=== PATIENT | female | born 1935 | race Caucasian/White ===

== ENCOUNTER → 2017-04-29 | Outpatient (CLI) | payer MEDICARE, MEDICAID ==
[~2017-04-29] MED LIST: E-Z-GAS II EFFERVESCENT PACKET (SODIUM BICARB./CITRIC ACID/SIMETHICONE) As Ordered ONE; E-Z-HD 98% w/w 340GM SUSP BTL As Ordered ONE; E-Z-PAQUE 96% w/w SUSP 176GM BTL As Ordered ONE
--- NOTE | 2017-04-29 16:37 | REP ---
ESOPHAGRAM: The procedure was performed under the direct supervision of Dr. Masters. The images were reviewed with Dr. Masetrs. A single view PA chest x-ray is submitted as a assembler surgical garment film. There is no change compared to a previous chest x-ray performed on 09/11/2015. Liquid barium and gas producing granules were given in the erect position as well as liquid barium in the prone oblique position in order to perform a double contrast esophagram examination. The oral and pharyngeal stages of deglutition are unremarkable. Note is made of cervical degenerative disc disease particularly at the C5-6 level. During esophageal transport there are tertiary waves demonstrated. At the GE junction there is a smooth stricture which measures 8 mm at its widest. There is a small hiatal hernia present. Gastroesophageal reflux is not demonstrated on this examination. IMPRESSION: 1. Esophageal dysmotility. 2. At the GE junction there is a smooth stricture which measures 8 mm at its widest. There is a small hiatal hernia. 1 minute and 1 second of fluoroscopy time was utilized for this procedure.
== END ==
LOC: M RAD 08:57
PROVIDERS: ATTEND Physician Assistant Medical
DX: K22.4 Dyskinesia of esophagus (principal); K44.9 Diaphragmatic hernia without obstruction or gangrene; R13.10 Dysphagia, unspecified; R12 Heartburn

== ENCOUNTER → 2017-05-20 | Outpatient (CLI) | payer MEDICARE ==
[~2017-05-20] VITALS: Ht 154.9 cm; Wt 58.5 kg
[~2017-05-20] MED LIST changes: -E-Z-GAS II EFFERVESCENT PACKET (SODIUM BICARB./CITRIC ACID/SIMETHICONE) As Ordered ONE; -E-Z-HD 98% w/w 340GM SUSP BTL As Ordered ONE; -E-Z-PAQUE 96% w/w SUSP 176GM BTL As Ordered ONE; +GLIM2TAB PO; +HYDR-3363 PO; +LEVO50TA5 PO; +LIDOCAINE 2% INJ 100 MG/5 ML SDV (FOR ANES.) As Ordered ONE; +LISI-542 PO; +NS 500 ML IV SCH; +PARO20TA4 PO; +PROPOFOL 200 MG/20 ML VIAL As Ordered ONE; +ROSU5TAB PO; +ePHEDrine SULFATE 25 MG/5 ML(5MG/ML) SYRINGE As Ordered ONE; +janumet PO
--- NOTE | 2017-05-20 08:43 | ROOR ---
Patient Name: Akosua Paez Procedure Date: 05/20/2017 7:57 AM Date of : 1935 Age: 81 Room: [facility] Gender: Female Note Status: Finalized Procedure: Upper GI endoscopy Indications: Dysphagia, Abnormal cine-esophagram Providers: Lázaro JUNG MD Referring MD: JUDY CASH Requesting Provider: Medicines: Monitored Anesthesia Care Complications: No immediate complications. Procedure: Pre-Anesthesia Assessment: - The heart rate, respiratory rate, oxygen saturations, blood pressure, adequacy of pulmonary ventilation, and response to care were monitored throughout the procedure. The Endoscope was introduced through the mouth, and advanced to the second part of duodenum. The upper GI endoscopy was accomplished without difficulty. The patient tolerated the procedure well. Findings: Abnormal motility was noted in the esophagus. There is spasticity and extra peristaltic waves of the esophageal body. The distal esophagus/lower esophageal sphincter is spastic, but gives up passage to the endoscope. Normal peristalsis not noted. One mild benign-appearing, intrinsic stenosis was found at the gastroesophageal junction. And was traversed. A TTS dilator was passed through the scope. Dilation with a 15-16.5-18 mm balloon dilator was performed to 18 mm. The dilation site was examined and showed no change. Biopsies were taken with a cold forceps for histology. Mild inflammation was found in the gastric antrum. Biopsies were taken with a cold forceps for Helicobacter pylori testing. The exam was otherwise without abnormality. Impression: - Abnormal esophageal motility/spasticity through entire esophagus and GE junction. - Slight benign-appearing esophageal stenosis (minimal, dubious significance). Dilated to 18 mm. Biopsied. - Minimal Gastritis. Biopsied. - The examination was otherwise normal. Recommendation: - Continue present medications. - Await pathology results. - Observe patient's clinical course. - Depending on todays results, consideration may be given to a trial on calcium channel alta or nitrates for esophageal dysmotility. - Depending on results, esophageal motility testing may be considered. Lázaro Jung MD Lázaro JUNG MD 05/20/2017 8:43:22 AM This report has been signed electronically. Number of Addenda: 0 Note Initiated On: 05/20/2017 7:57 AM Estimated Blood Loss: Estimated blood loss: none.
--- NOTE | 2017-05-20 08:49 | ROOR ---
Patient Name: Akosua Paez Procedure Date: 05/20/2017 7:57 AM Date of : 1935 Age: 81 Room: [facility] Gender: Female Note Status: Finalized Procedure: Colonoscopy Indications: Screening for colorectal malignant neoplasm Providers: Lázaro JUNG MD Referring MD: JUDY CASH Requesting Provider: Medicines: Monitored Anesthesia Care Complications: No immediate complications. Procedure: Pre-Anesthesia Assessment: - The heart rate, respiratory rate, oxygen saturations, blood pressure, adequacy of pulmonary ventilation, and response to care were monitored throughout the procedure. The Colonoscope was introduced through the anus and advanced to the terminal ileum, with identification of the appendiceal orifice and IC valve. The colonoscopy was performed without difficulty. The patient tolerated the procedure well. The quality of the bowel preparation was good. Findings: The perianal and digital rectal examinations were normal. Two sessile polyps were found in the sigmoid colon. The polyps were diminutive in size. These polyps were removed with a cold snare. Resection and retrieval were complete. A diminutive polyp was found in the rectum. The polyp was sessile. The polyp was removed with a cold snare. Resection and retrieval were complete. The exam was otherwise without abnormality on direct and retroflexion views. Impression: - Two diminutive polyps in the sigmoid colon, removed with a cold snare. Resected and retrieved. - One diminutive polyp in the distal rectum, removed with a cold snare. Resected and retrieved. - The colon examination was otherwise normal on direct and retroflexion views. Recommendation: - Telephone endoscopist for pathology results in 2 weeks. - If the pathology report reveals adenomatous tissue, then repeat the colonoscopy for surveillance in 3 years. Lázaro Jung MD Lázaro JUNG MD 05/20/2017 8:49:10 AM This report has been signed electronically. Number of Addenda: 0 Note Initiated On: 05/20/2017 7:57 AM Estimated Blood Loss: Estimated blood loss: none.
[2017-05-20 09:14] VITALS: BP 110/56
== END | disposition home or self-care (01) ==
LOC: M OPP 06:48
PROVIDERS: ATTEND Internal Medicine Gastroenterology
DX: Z12.11 Encounter for screening for malignant neoplasm of colon (principal); D12.5 Benign neoplasm of sigmoid colon; D12.8 Benign neoplasm of rectum; R13.10 Dysphagia, unspecified; R93.3 Abnormal findings on diagnostic imaging of other parts of digestive tract; R12 Heartburn; K29.70 Gastritis, unspecified, without bleeding; K22.4 Dyskinesia of esophagus; K22.2 Esophageal obstruction; I10 Essential (primary) hypertension; E78.5 Hyperlipidemia, unspecified; E11.9 Type 2 diabetes mellitus without complications; E03.9 Hypothyroidism, unspecified; M19.90 Unspecified osteoarthritis, unspecified site; M25.569 Pain in unspecified knee; M54.5 Low back pain; F32.9 Major depressive disorder, single episode, unspecified; F41.9 Anxiety disorder, unspecified; Z88.0 Allergy status to penicillin; Z88.8 Allergy status to other drugs, medicaments and biological substances; Z79.84 Long term (current) use of oral hypoglycemic drugs; Z79.899 Other long term (current) drug therapy

== ENCOUNTER → 2020-07-16 | Outpatient (CLI) | payer MEDICARE ==
[~2020-07-16] MED LIST changes: -GLIM2TAB PO; +GLIM2TAB4 PO; -LIDOCAINE 2% INJ 100 MG/5 ML SDV (FOR ANES.) As Ordered ONE; -NS 500 ML IV SCH; -PROPOFOL 200 MG/20 ML VIAL As Ordered ONE; -ROSU5TAB PO; +ROSU5TAB5 PO; -ePHEDrine SULFATE 25 MG/5 ML(5MG/ML) SYRINGE As Ordered ONE
--- NOTE | 2020-08-07 07:54 | REP ---
ELIZABETHIE SWALLOW The procedure was performed under the direct supervision of Dr. Masters. The procedure was performed with Cindy Perez from speech pathology present. 5 mL aliquots of thin, pudding, mixed fruit, soft, and solid consistency barium, as well as a barium pill were administered. There was no evidence of penetration or aspiration. A detailed report of this examination will be provided by speech pathology. 0.8 minutes of fluoroscopy time was utilized for this procedure. DARREL
== END ==
LOC: M ST 15:56
PROVIDERS: ATTEND Family Medicine
DX: R13.10 Dysphagia, unspecified (principal)

== ENCOUNTER → 2020-07-29 | Outpatient (REF) | payer MEDICARE ==
[2020-07-30 13:45] LABS: THYROID STIMULATING HORMONE 2.88 uIU/ML (0.358-3.740)
== END ==
LOC: M SFHCCLAY 11:19
PROVIDERS: ATTEND Family Medicine
DX: E03.8 Other specified hypothyroidism (principal)

== ENCOUNTER → 2020-09-25 | Outpatient (REF) | payer MEDICARE, OTHER | LOC: M SFHCCLAY 14:03 | PROVIDERS: ATTEND Family Medicine | DX: E11.9 Type 2 diabetes mellitus without complications (principal); Z23 Encounter for immunization | CPT/HCPCS: 83036; 90682; G0008; G0463 ==

== ENCOUNTER → 2020-11-04 | Outpatient (CLI) | payer MEDICARE, MEDICAID ==
--- NOTE | 2020-11-04 14:59 | REP ---
INDICATION: SLIPPING W/O FALLING/RIB PAIN/LEFT HIP AND LEG PAIN COMPARISON: None. TECHNIQUE: AP, lateral views of the left tibia/fibula FINDINGS: Age-related osteopenia and degenerative changes at the knee and ankle joint noted. No acute or healed injury identified. No subcutaneous emphysema or foreign body. IMPRESSION: Age-related osteopenia and degenerative changes. No acute fracture or dislocation. <Electronically signed by Jung Berger > 11/04/20 [id number]
--- NOTE | 2020-11-04 14:59 | REP ---
INDICATION: SLIPPING W/O FALLING/RIB PAIN/LEFT HIP AND LEG PAIN COMPARISON: None. TECHNIQUE: AP and frog-lateral views of the left hip FINDINGS: Generalized age-related changes include subtle increased sclerosis to the acetabulum with minimal joint space narrowing. No further overt osteoarthritic or significant degenerative changes are appreciated. No evidence for acute or healed injury. Surrounding soft tissues are normal. IMPRESSION: Generalized age-related changes. <Electronically signed by Jung Berger > 11/04/20 [id number]
--- NOTE | 2020-11-04 15:00 | REP ---
INDICATION: SLIPPING W/O FALLING/RIB PAIN LEFT SIDE COMPARISON: None. TECHNIQUE: Frontal view of the chest with multiple views of the left hemithorax. FINDINGS: Frontal view of the chest demonstrates no acute cardiopulmonary process, contusion, effusion, or pneumothorax. Osteopenia and degenerative changes to the thoracic spine and shoulders noted. Multiple views of the left hemithorax demonstrates no acute rib fracture/injury or pathology. IMPRESSION: No obvious acute left rib pathology or injury. <Electronically signed by Jung Berger > 11/04/20 [id number]
== END ==
LOC: M CLY 14:10
PROVIDERS: ATTEND Nurse Practitioner Family
DX: M16.12 Unilateral primary osteoarthritis, left hip (principal); M85.862 Other specified disorders of bone density and structure, left lower leg; M51.34 Other intervertebral disc degeneration, thoracic region; R07.81 Pleurodynia; W18.43XA Slipping, tripping and stumbling without falling due to stepping from one level to another, initial encounter; M25.552 Pain in left hip; M79.605 Pain in left leg
CPT/HCPCS: 71101; 73502; 73590; G0463

== ENCOUNTER → 2021-03-28 | Outpatient (REF) | payer MEDICARE, MEDICAID ==
[~2021-03-28] MED LIST changes: -LISI-542 PO; +LISI-898 PO
[2021-03-28 16:53] LABS: HEMOGLOBIN A1c 8.3 %
[2021-03-28 16:58] LABS: CALCIUM LEVEL 8.8 MG/DL (8.8-10.2); CHOLESTEROL RISK RATIO 4.96 (<5); GLOMERULAR FILTRATION RATE 56.4 (>32); POTASSIUM SERUM 4.5 MEQ/L (3.5-5.1)
[2021-03-28 17:05] LABS: MALB URINE SIEMENS 33.3 MG/L; MAU/CREAT RATIO 31.7 MCG/MG (0.0-30.0)
== END ==
LOC: M SFHCCLAY 11:40
PROVIDERS: ATTEND Family Medicine
DX: E11.9 Type 2 diabetes mellitus without complications (principal)

== ENCOUNTER → 2021-09-10 | Outpatient (REF) | payer MEDICARE, MEDICAID ==
[2021-09-11 12:20] LABS: CALCIUM LEVEL 9.2 MG/DL (8.8-10.2); CREATININE FOR GFR 1.09 MG/DL (0.55-1.30); POTASSIUM SERUM 4.9 MEQ/L (3.5-5.1)
[2021-09-11 13:04] LABS: HEMOGLOBIN A1c 9.6 %
== END ==
LOC: M SFHCCLAY 15:26
PROVIDERS: ATTEND Family Medicine
DX: E11.9 Type 2 diabetes mellitus without complications (principal)

== ENCOUNTER 2023-11-29 17:10 | Emergency (ER) | payer MEDICARE, MEDICAID ==
[~2023-11-29] VITALS: Ht 154.9 cm; Wt 51.8 kg
[~2023-11-29 17:10] MED LIST changes: -LISI-898 PO; +LISI5TAB11 PO
[2023-11-29 18:18] LABS: BASO # 0.1 10^3/uL (0.0-0.2); BASO % 0.6 % (0.0-1.0); EOS # 0.1 10^3/uL (0.0-0.5); HEMATOCRIT 37.4 % (36.0-47.0); HEMOGLOBIN 13.2 g/dl (12.0-15.5); LYMPH # 2.3 10^3/uL (1.5-5.0); LYMPH % 23.6 % (24.0-44.0); MEAN CORPUSCULAR HEMOGLOBIN 31.7 pg (27.0-33.0); MEAN CORPUSCULAR HGB CONC 35.3 g/dl (32.0-36.5); MEAN CORPUSCULAR VOLUME 89.9 fl (80.0-96.0); MONO # 0.8 10^3/uL (0.0-0.8); MONO % 7.8 % (2.0-8.0); NEUTROPHILS # 6.6 10^3/uL (1.5-8.5); NEUTROPHILS % 66.6 % (36.0-66.0); PLATELET COUNT, AUTOMATED 377 10^3/uL (150-450); RED BLOOD COUNT 4.16 10^6/uL (4.00-5.40); WHITE BLOOD COUNT 9.9 10^3/uL (4.0-10.0)
[2023-11-29 18:43] LABS: CALCIUM LEVEL 9.7 MG/DL (8.3-10.6); CREATININE FOR GFR 1.35 MG/DL (0.55-1.30); GLOMERULAR FILTRATION RATE 39.6 (>32); POTASSIUM SERUM 3.8 MMOL/L (3.5-5.1)
[2023-11-29 19:00] VITALS: TEMP 98
[2023-11-29 19:30] VITALS: BP 140/67; O2SAT 97
[2023-11-29] MEDS ORDERED: diazePAM 5MG TABLET PO ONE (19:35)
[2023-11-29] MEDS ORDERED: KETOROLAC 30 MG/ML 1ML VIAL IM ONE (19:35)
[2023-11-29] MEDS ORDERED: TRAM37.53 PO (19:39)
== END 2023-11-29 20:00 | disposition home or self-care (01) ==
LOC: M ED 17:10
DX: M54.41 Lumbago with sciatica, right side (principal); E11.9 Type 2 diabetes mellitus without complications; I10 Essential (primary) hypertension; Z87.891 Personal history of nicotine dependence; Z79.899 Other long term (current) drug therapy; Z88.0 Allergy status to penicillin; Z88.8 Allergy status to other drugs, medicaments and biological substances
CPT/HCPCS: 73502; 73552; 80048; 85025; 96372; 99284; J1885

== ENCOUNTER 2025-07-02 16:57 | Observation (INO) | payer MEDICARE, MEDICAID ==
[~2025-07-02] VITALS: Ht 160 cm; Wt 57.6 kg
[~2025-07-02 16:57] MED LIST changes: +ROSU5TAB49 PO; -ROSU5TAB5 PO; +TRAM1TAB42 PO
[2025-07-02] MEDS ORDERED: PARO20TA3 (17:31)
[2025-07-02] MEDS ORDERED: ELIQ2.5T PO (17:31)
[2025-07-02] MEDS ORDERED: ATOR40TA75 PO (17:31)
[2025-07-02] MEDS ORDERED: GLIM4TAB5 PO (17:31)
[2025-07-02] MEDS ORDERED: METF500T13 PO (17:31)
[2025-07-02 18:28] LABS: BASO # 0.1 10^3/uL (0.0-0.2); BASO % 0.6 % (0.0-1.0); EOS # 0.1 10^3/uL (0.0-0.5); EOS % 1.6 % (0.0-3.0); LYMPH # 1.7 10^3/uL (1.5-5.0); LYMPH % 18.4 % (24.0-44.0); MONO # 1.0 10^3/uL (0.0-0.8); MONO % 10.7 % (2.0-8.0); NEUTROPHILS # 6.2 10^3/uL (1.5-8.5); NEUTROPHILS % 68.4 % (36.0-66.0); PLATELET COUNT, AUTOMATED 291 10^3/uL (150-450)
[2025-07-02 19:04] LABS: CALCIUM LEVEL 8.9 MG/DL (8.3-10.6); CARBON DIOXIDE LEVEL 28.0 MMOL/L (20-31); CHLORIDE LEVEL 98.0 MMOL/L (98-107); CREATININE FOR GFR 0.99 MG/DL (0.55-1.30); GLOMERULAR FILTRATION RATE 55.2 (>32); POTASSIUM SERUM 5.3 MMOL/L (3.5-5.1); SODIUM LEVEL 134.0 MMOL/L (136-145)
[2025-07-02] MEDS: TETANUS/DIPHTH/ACEL. PERTUSSIS 0.5 ML SYR IM.IMMUN ONE (19:12)
[2025-07-02 19:46] LABS: INR 1.0
[2025-07-02] MEDS ORDERED: TRAZ-189 PO (19:52)
[2025-07-02] MEDS ORDERED: PARO40TA2 PO (19:52)
[2025-07-02] MEDS ORDERED: GABA-1171 PO ×2 (19:53)
[2025-07-02] MEDS ORDERED: HOME MED LIST COMPLETE! XX SCH (19:55)
[2025-07-02] MEDS ORDERED: med rec comment (19:55)
[2025-07-02] MEDS ORDERED: GLUCOSE 4 GM CHEW PO PRN (20:20)
[2025-07-02] MEDS ORDERED: DEXTROSE 50% 50 ML SYRINGE IV PRN (20:20)
[2025-07-02] MEDS ORDERED: GLUCAGON INJ 1 MG VIAL SC PRN (20:20)
[2025-07-02 20:58] LABS: ALT/SGPT 15.0 U/L (7.0-40); AST/SGOT 35.0 U/L (<34); MAGNESIUM LEVEL 1.3 MG/DL (1.8-2.4)
[2025-07-02] MEDS: INSULIN LISPRO (NovoLOG) PER UNIT SC SCH (21:34)
[2025-07-02] MEDS: PARoxetine 20MG TABLET PO SCH (21:37)
[2025-07-02] MEDS: GABAPENTIN 100 MG CAP PO SCH (21:37)
[2025-07-02] MEDS: APIXABAN 2.5 MG TAB PO SCH (21:37)
[2025-07-02] MEDS: traZODone 100 MG TAB PO SCH (21:37)
[2025-07-02] MEDS: METOPROLOL TART 12.5 MG PER 1/2 TAB PO ONE (23:53)
[2025-07-02] MEDS: METOPROLOL 5 MG/5 ML VIAL IV STA (23:55)
[2025-07-03] MEDS: MAG SULF 1GM/100ML (MAG RUN) 1 GM in IV 1 EA IV SCH (00:22)
[2025-07-03] MEDS: MAGNESIUM OXIDE 400 MG TAB PO ONE (00:22)
[2025-07-03] MEDS: OLANZapine ORAL DISINTEGRATING TAB 5MG PO PRN (00:22)
[2025-07-03 01:34] VITALS: BP 137/67; TEMP 97.1; O2SAT 98
[2025-07-03] MEDS: ACETAMINOPHEN 325 MG TAB PO ONE (02:22)
[2025-07-03 03:41] LABS: CPK CREATINE PHOSPHOKINASE 100.0 U/L (34-145)
[2025-07-03 04:00] VITALS: BP 103/54; TEMP 98.2; O2SAT 97
[2025-07-03 04:47] LABS: CK-MB VALUE MASS 1.9 NG/ML (<3.6); MB/CK RELATIVE INDEX 1.9 (< OR =4)
[2025-07-03 05:54] LABS: BASO # 0.0 10^3/uL (0.0-0.2); BASO % 0.5 % (0.0-1.0); EOS # 0.2 10^3/uL (0.0-0.5); EOS % 1.8 % (0.0-3.0); LYMPH # 1.9 10^3/uL (1.5-5.0); LYMPH % 21.9 % (24.0-44.0); MONO # 1.1 10^3/uL (0.0-0.8); MONO % 12.2 % (2.0-8.0); NEUTROPHILS # 5.5 10^3/uL (1.5-8.5); NEUTROPHILS % 63.1 % (36.0-66.0); PLATELET COUNT, AUTOMATED 244 10^3/uL (150-450)
[2025-07-03 06:25] LABS: ALT/SGPT 11.0 U/L (7.0-40); AST/SGOT 15.0 U/L (<34); CALCIUM LEVEL 8.8 MG/DL (8.3-10.6); CARBON DIOXIDE LEVEL 29.0 MMOL/L (20-31); CHLORIDE LEVEL 98.0 MMOL/L (98-107); CREATININE FOR GFR 1.1 MG/DL (0.55-1.30); GLOMERULAR FILTRATION RATE 48.6 (>32); MAGNESIUM LEVEL 2.2 MG/DL (1.8-2.4); POTASSIUM SERUM 4.4 MMOL/L (3.5-5.1); SODIUM LEVEL 134.0 MMOL/L (136-145)
[2025-07-03 08:28] VITALS: BP 135/63; TEMP 98.4; O2SAT 97
[2025-07-03] MEDS: GABAPENTIN 100 MG CAP PO SCH (09:08)
[2025-07-03] MEDS: ATORVASTATIN 20 MG TAB PO SCH (09:08)
[2025-07-03] MEDS: INSULIN LISPRO (NovoLOG) PER UNIT SC SCH (09:15)
[2025-07-03 11:50] VITALS: BP 113/53; TEMP 97.8; O2SAT 71
[2025-07-03] MEDS: METOPROLOL SUCC *XL* 12.5 MG PER 1/2 TAB PO SCH (15:10)
[2025-07-03] MEDS: metFORMIN 500 MG TAB PO SCH (17:40)
[2025-07-04] MEDS: ACETAMINOPHEN 325 MG TAB PO PRN (01:41)
[2025-07-04 07:57] VITALS: BP 115/55; TEMP 98; O2SAT 98
[2025-07-04 16:45] VITALS: BP 111/55; TEMP 97.2; O2SAT 95
[2025-07-04 20:00] VITALS: BP 138/84; TEMP 97.9; O2SAT 94
[2025-07-05 04:00] VITALS: TEMP 97.7; O2SAT 92
[2025-07-05 12:00] VITALS: BP 148/78; TEMP 97.7; O2SAT 96
[2025-07-06 04:05] VITALS: BP 128/63; TEMP 97.9; O2SAT 95
[2025-07-07 04:00] VITALS: BP 139/72; TEMP 97.9; O2SAT 96
[2025-07-08 04:00] VITALS: BP 116/58; TEMP 97.5; O2SAT 96
[2025-07-09 03:46] VITALS: BP 132/76; TEMP 97.9; O2SAT 97
[2025-07-10 03:45] VITALS: BP 133/65; TEMP 97.5; O2SAT 97
[2025-07-12 04:37] VITALS: BP 156/60; TEMP 97.5; O2SAT 94
[2025-07-12 20:31] VITALS: BP 148/73
[2025-07-13 06:50] VITALS: BP 144/72; TEMP 98.1; O2SAT 97
[2025-07-14 04:17] VITALS: BP 144/72; TEMP 97.9; O2SAT 95
[2025-07-15 03:41] VITALS: BP 142/63; TEMP 97.8; O2SAT 93
[2025-07-16 06:30] VITALS: BP 139/72; TEMP 97.7; O2SAT 95
[2025-07-16] MEDS ORDERED: METO1TAB32 PO (12:08)
[2025-07-17 03:07] VITALS: BP 129/52; TEMP 97.3; O2SAT 96
[2025-07-17 08:16] VITALS: BP 125/59
== END 2025-07-17 10:38 | disposition home health service (06) ==
LOC: M ED 16:57 → M PCU 23:36 → INTOOBSV 23:36 → M MSPAV 07-04 16:42
PROVIDERS: ADMIT Student in an Organized Health Care Education/Training Program; ATTEND General Practice
DX: I48.91 Unspecified atrial fibrillation (principal); S00.03XA Contusion of scalp, initial encounter; S00.81XA Abrasion of other part of head, initial encounter; V48.4XXA Person boarding or alighting a car injured in noncollision transport accident, initial encounter; Y92.014 Private driveway to single-family (private) house as the place of occurrence of the external cause; R51.9 Headache, unspecified; R26.2 Difficulty in walking, not elsewhere classified; Z91.81 History of falling; R93.1 Abnormal findings on diagnostic imaging of heart and coronary circulation; E11.9 Type 2 diabetes mellitus without complications; E78.5 Hyperlipidemia, unspecified; I10 Essential (primary) hypertension; F03.90 Unspecified dementia, unspecified severity, without behavioral disturbance, psychotic disturbance, mood disturbance, and anxiety; F41.9 Anxiety disorder, unspecified; F32.A Depression, unspecified; Z98.41 Cataract extraction status, right eye; Z98.42 Cataract extraction status, left eye; Z96.1 Presence of intraocular lens; Z98.890 Other specified postprocedural states; Z87.891 Personal history of nicotine dependence; R94.31 Abnormal electrocardiogram [ECG] [EKG]; I45.10 Unspecified right bundle-branch block; G31.1 Senile degeneration of brain, not elsewhere classified; Z88.8 Allergy status to other drugs, medicaments and biological substances; Z88.0 Allergy status to penicillin; Z79.899 Other long term (current) drug therapy; Z79.01 Long term (current) use of anticoagulants; Z79.84 Long term (current) use of oral hypoglycemic drugs; Z23 Encounter for immunization
CPT/HCPCS: 36415; 70450; 72125; 80048; 80053; 80076; 82140; 82550; 82553; 83735; 83880; 84484; 85025; 85610; 90471; 90715; 93306; 96365; 96376; 97116; 97161; 99285; G0378; J3475

== ENCOUNTER 2025-10-08 16:52 | Inpatient (IN) | payer MEDICARE, MEDICAID ==
[~2025-10-08] VITALS: Ht 154.9 cm; Wt 58.6 kg
[~2025-10-08 16:52] MED LIST changes: +ATOR40TA75 PO; +ELIQ2.5T PO; +GABA-1171 PO; +GLIM4TAB5 PO; +METF500T13 PO; +METO1TAB32 PO; +PARO20TA3; +PARO40TA2 PO; +TRAZ-189 PO; +med rec comment
[2025-10-08 17:32] LABS: BASO # 0.0 10^3/uL (0.0-0.2); BASO % 0.3 % (0.0-1.0); EOS # 0.0 10^3/uL (0.0-0.5); EOS % 0.0 % (0.0-3.0); LYMPH # 0.4 10^3/uL (1.5-5.0); LYMPH % 6.0 % (24.0-44.0); MONO # 0.5 10^3/uL (0.0-0.8); MONO % 7.4 % (2.0-8.0); NEUTROPHILS # 5.9 10^3/uL (1.5-8.5); NEUTROPHILS % 85.9 % (36.0-66.0); PLATELET COUNT, AUTOMATED 243 10^3/uL (150-450)
[2025-10-08 17:35] LABS: KETONE, URINE AUTO RFX TRACE mg/dL (NEGATIVE); LEUKOCYTE ESTERASE UR AUTO RFX NEGATIVE (NEGATIVE); NITRITE, URINE AUTO RFX NEGATIVE (NEGATIVE); RBC, URINE AUTO RFX 1 /HPF (0-3); SQUAM EPITHELIAL CELL UR AURFX 0 /HPF (0-6); WBC, URINE AUTO RFX 1 /HPF (0-3)
[2025-10-08 17:59] LABS: ALT/SGPT 18.0 U/L (7.0-40); AST/SGOT 26.0 U/L (<34); CALCIUM LEVEL 9.3 MG/DL (8.3-10.6); CARBON DIOXIDE LEVEL 24.0 MMOL/L (20-31); CHLORIDE LEVEL 94.0 MMOL/L (98-107); CREATININE FOR GFR 1.0 MG/DL (0.55-1.30); GLOMERULAR FILTRATION RATE 54.2 (>32); POTASSIUM SERUM 4.6 MMOL/L (3.5-5.1); SODIUM LEVEL 130.0 MMOL/L (136-145)
[2025-10-08] MEDS: NS (Normal Saline) 0.9% 1,000 ML IV ONE (18:14)
[2025-10-08 18:20] LABS: VENOUS BASE EXCESS -2.5 (-2.0-2.0); VENOUS HCO3 23.9 MMOL/L (23.0-27.0); VENOUS O2 SATURATION 75.2 % (60.0-80.0); VENOUS PARTIAL PRESSURE CO2 48.3 mmHg (38.0-50.0); VENOUS PARTIAL PRESSURE O2 41.7 mmHg (30.0-50.0); VENOUS PH 7.313 UNITS (7.330-7.430); VENOUS STANDARD HCO3 21.9 MMOL/L; VENOUS TOTAL CO2 25.4 MMOL/L (24.0-28.0)
[2025-10-08 18:30] LABS: ACETONE/KETONE 0.7 MMOL/L (0.02-0.27)
[2025-10-08] MEDS: HumuLIN R (REGULAR) INSULIN (NovoLIN R) **100 U/ML** PER UNIT IV ONE (18:39)
[2025-10-08] MEDS: OSELTAMIVIR PHOSPHATE 75 MG CAP PO ONE (18:43)
[2025-10-08] MEDS ORDERED: METO1TAB32 PO (19:18)
[2025-10-08] MEDS ORDERED: HOME MED LIST COMPLETE! XX SCH (19:20)
[2025-10-08] MEDS ORDERED: HYDR-3363 PO (19:20)
[2025-10-08] MEDS ORDERED: DEXTROSE 50% 50 ML SYRINGE IV PRN (19:45)
[2025-10-08] MEDS ORDERED: MOM 30 ML SUSPENSION UDC PO PRN (19:45)
[2025-10-08] MEDS ORDERED: ONDANSETRON 4MG/2ML VIAL IV PRN (19:45)
[2025-10-08] MEDS ORDERED: GLUCAGON INJ 1 MG VIAL SC PRN (19:45)
[2025-10-08] MEDS ORDERED: GLUCOSE 4 GM CHEW PO PRN (19:45)
[2025-10-08] MEDS: PARoxetine 20MG TABLET PO SCH (21:35)
[2025-10-08] MEDS: NS (Normal Saline) 0.9% 1,000 ML IV SCH (21:35)
[2025-10-08] MEDS: traZODone 100 MG TAB PO SCH (21:36)
[2025-10-08] MEDS: GABAPENTIN 100 MG CAP PO SCH (21:36)
[2025-10-08] MEDS: ACETAMINOPHEN 325 MG TAB PO PRN (21:36)
[2025-10-08] MEDS: METOPROLOL SUCC. 25 MG *XL* TAB PO SCH (21:36)
[2025-10-08] MEDS: APIXABAN 2.5 MG TAB PO SCH (21:36)
[2025-10-08] MEDS: METOPROLOL 5 MG/5 ML VIAL IV SCH (23:22)
[2025-10-09] MEDS: INSULIN LISPRO (NovoLOG) PER UNIT SC SCH (00:03)
[2025-10-09] MEDS: dilTIAZem 25 MG/5 ML VIAL IV STA (00:04)
[2025-10-09] MEDS: dilTIAZem 60 MG TAB PO SCH (01:13)
[2025-10-09] MEDS: AMIODARONE HCL 150 MG in IV 1 EA IV SCH (03:52)
[2025-10-09 04:15] LABS: PLATELET COUNT, AUTOMATED 214 10^3/uL (150-450)
[2025-10-09 04:46] LABS: ALT/SGPT 12.0 U/L (7.0-40); AST/SGOT 32.0 U/L (<34); CALCIUM LEVEL 7.9 MG/DL (8.3-10.6); CARBON DIOXIDE LEVEL 26.0 MMOL/L (20-31); CHLORIDE LEVEL 103.0 MMOL/L (98-107); CREATININE FOR GFR 1.01 MG/DL (0.55-1.30); GLOMERULAR FILTRATION RATE 53.5 (>32); MAGNESIUM LEVEL 1.3 MG/DL (1.8-2.4); POTASSIUM SERUM 4.1 MMOL/L (3.5-5.1); SODIUM LEVEL 139.0 MMOL/L (136-145)
[2025-10-09 04:47] LABS: CALCIUM LEVEL 7.7 MG/DL (8.3-10.6); CARBON DIOXIDE LEVEL 26.0 MMOL/L (20-31); CHLORIDE LEVEL 103.0 MMOL/L (98-107); CREATININE FOR GFR 1.0 MG/DL (0.55-1.30); GLOMERULAR FILTRATION RATE 54.2 (>32); MAGNESIUM LEVEL 1.3 MG/DL (1.8-2.4); POTASSIUM SERUM 5.3 MMOL/L (3.5-5.1); SODIUM LEVEL 138.0 MMOL/L (136-145)
[2025-10-09] MEDS: MAG SULF 1GM/100ML (MAG RUN) 1 GM in IV 1 EA IV SCH (06:16)
[2025-10-09] MEDS: ATORVASTATIN 20 MG TAB PO SCH (08:59)
[2025-10-09] MEDS: metFORMIN 500 MG TAB PO SCH (08:59)
[2025-10-09] MEDS: OSELTAMIVIR PHOSPHATE 30MG CAPSULE PO SCH (08:59)
[2025-10-09] MEDS: PANTOPRAZOLE 40MG TAB PO SCH (09:00)
[2025-10-09] MEDS: METOPROLOL SUCC. 25 MG *XL* TAB PO SCH (09:00)
[2025-10-09 12:36] VITALS: BP 112/64; TEMP 98.5; O2SAT 93
[2025-10-09] MEDS: LEVALBUTEROL 1.25 MG 0.5ML CONCENTRATE NEB INH SCH (13:54)
[2025-10-09] MEDS: BUDESONIDE 0.25 MG/2 ML INHALATION SUSPENSION INH SCH (19:23)
[2025-10-09 20:50] VITALS: BP 100/58; TEMP 99.1; O2SAT 91
[2025-10-09] MEDS: NYSTATIN 100,000 UNITS/GM TOPICAL PWD 15 GM TOP SCH (20:55)
[2025-10-10 02:30] VITALS: O2SAT 88
[2025-10-10 02:49] VITALS: O2SAT 96
[2025-10-10 04:14] VITALS: BP 156/79; TEMP 98.4; O2SAT 91
[2025-10-10 09:13] LABS: PLATELET COUNT, AUTOMATED 187 10^3/uL (150-450)
[2025-10-10] MEDS: MAGNESIUM OXIDE 400 MG TAB PO SCH (09:29)
[2025-10-10] MEDS: MAG SULF 1GM/100ML (MAG RUN) 1 GM in IV 1 EA IV SCH (09:29)
[2025-10-10 09:38] LABS: CALCIUM LEVEL 7.6 MG/DL (8.3-10.6); CARBON DIOXIDE LEVEL 25.0 MMOL/L (20-31); CHLORIDE LEVEL 101.0 MMOL/L (98-107); CREATININE FOR GFR 1.22 MG/DL (0.55-1.30); GLOMERULAR FILTRATION RATE 42.7 (>32); MAGNESIUM LEVEL 1.7 MG/DL (1.8-2.4); POTASSIUM SERUM 3.9 MMOL/L (3.5-5.1); SODIUM LEVEL 135.0 MMOL/L (136-145)
[2025-10-10 12:00] VITALS: BP 100/58; TEMP 98.9; O2SAT 97
[2025-10-10] MEDS: INSULIN LISPRO (NovoLOG) PER UNIT SC SCH ×2 (14:13→21:00)
[2025-10-10 18:00] VITALS: O2SAT 92
[2025-10-10 20:53] VITALS: BP 116/59; TEMP 98.5; O2SAT 98
[2025-10-11 00:29] VITALS: O2SAT 92
[2025-10-11 04:49] VITALS: BP 118/88; TEMP 98.8; O2SAT 95
[2025-10-11 12:00] VITALS: BP 122/65; TEMP 98.1; O2SAT 98
[2025-10-11] MEDS: LEVALBUTEROL 0.63 MG/3 ML INH SCH (20:11)
[2025-10-12 03:32] VITALS: BP 140/72; TEMP 98.7; O2SAT 93
[2025-10-12 06:27] LABS: BASO # 0.0 10^3/uL (0.0-0.2); BASO % 0.4 % (0.0-1.0); EOS # 0.0 10^3/uL (0.0-0.5); EOS % 0.4 % (0.0-3.0); LYMPH # 0.9 10^3/uL (1.5-5.0); LYMPH % 18.5 % (24.0-44.0); MONO # 0.6 10^3/uL (0.0-0.8); MONO % 12.9 % (2.0-8.0); NEUTROPHILS # 3.1 10^3/uL (1.5-8.5); NEUTROPHILS % 67.6 % (36.0-66.0); PLATELET COUNT, AUTOMATED 171 10^3/uL (150-450)
[2025-10-12 06:50] LABS: CALCIUM LEVEL 7.9 MG/DL (8.3-10.6); CARBON DIOXIDE LEVEL 27.0 MMOL/L (20-31); CHLORIDE LEVEL 97.0 MMOL/L (98-107); CREATININE FOR GFR 1.04 MG/DL (0.55-1.30); GLOMERULAR FILTRATION RATE 51.7 (>32); MAGNESIUM LEVEL 1.4 MG/DL (1.8-2.4); POTASSIUM SERUM 4.0 MMOL/L (3.5-5.1); SODIUM LEVEL 133.0 MMOL/L (136-145)
[2025-10-12 11:47] VITALS: BP 130/76; TEMP 98.7; O2SAT 94
[2025-10-12 11:54] VITALS: BP 130/76; TEMP 98.7; O2SAT 94
[2025-10-13 04:20] VITALS: BP 132/84; TEMP 98.6; O2SAT 95
[2025-10-13 06:32] LABS: BASO # 0.0 10^3/uL (0.0-0.2); BASO % 0.2 % (0.0-1.0); EOS # 0.0 10^3/uL (0.0-0.5); EOS % 0.2 % (0.0-3.0); LYMPH # 0.9 10^3/uL (1.5-5.0); LYMPH % 19.0 % (24.0-44.0); MONO # 0.8 10^3/uL (0.0-0.8); MONO % 15.5 % (2.0-8.0); NEUTROPHILS # 3.1 10^3/uL (1.5-8.5); NEUTROPHILS % 64.7 % (36.0-66.0); PLATELET COUNT, AUTOMATED 179 10^3/uL (150-450)
[2025-10-13 06:55] LABS: CALCIUM LEVEL 8.0 MG/DL (8.3-10.6); CARBON DIOXIDE LEVEL 25.0 MMOL/L (20-31); CHLORIDE LEVEL 100.0 MMOL/L (98-107); CREATININE FOR GFR 0.92 MG/DL (0.55-1.30); GLOMERULAR FILTRATION RATE 59.9 (>32); MAGNESIUM LEVEL 1.4 MG/DL (1.8-2.4); POTASSIUM SERUM 4.3 MMOL/L (3.5-5.1); SODIUM LEVEL 136.0 MMOL/L (136-145)
[2025-10-13] MEDS: PANTOPRAZOLE 20 MG TAB PO SCH (08:09)
[2025-10-13] MEDS: MAG SULF 1GM/100ML (MAG RUN) 1 GM in IV 1 EA IV ONE (08:10)
[2025-10-13 12:00] VITALS: BP 161/80; TEMP 98.3; O2SAT 93
[2025-10-13 21:06] VITALS: BP 173/75; TEMP 98.3; O2SAT 94
[2025-10-14 04:14] VITALS: BP 176/80; TEMP 98.9; O2SAT 92
[2025-10-14 04:46] VITALS: BP 180/78
[2025-10-14] MEDS: **hydrALAZINE** 10 MG TAB PO ONE (04:51)
[2025-10-14 06:09] VITALS: BP 164/81
[2025-10-14 15:18] VITALS: BP 98/66
[2025-10-14 20:55] VITALS: BP 114/56; TEMP 98.3; O2SAT 91
[2025-10-15 05:35] VITALS: BP 124/60; TEMP 98.9; O2SAT 90
[2025-10-15 20:16] VITALS: BP 129/68
[2025-10-16 06:01] VITALS: BP 137/60; TEMP 98.7; O2SAT 90
[2025-10-16 06:43] LABS: BASO # 0.0 10^3/uL (0.0-0.2); BASO % 0.4 % (0.0-1.0); EOS # 0.1 10^3/uL (0.0-0.5); EOS % 1.2 % (0.0-3.0); LYMPH # 1.4 10^3/uL (1.5-5.0); LYMPH % 19.7 % (24.0-44.0); MONO # 0.9 10^3/uL (0.0-0.8); MONO % 12.2 % (2.0-8.0); NEUTROPHILS # 4.5 10^3/uL (1.5-8.5); NEUTROPHILS % 65.3 % (36.0-66.0); PLATELET COUNT, AUTOMATED 345 10^3/uL (150-450)
[2025-10-16 07:04] LABS: CALCIUM LEVEL 8.2 MG/DL (8.3-10.6); CARBON DIOXIDE LEVEL 28.0 MMOL/L (20-31); CHLORIDE LEVEL 97.0 MMOL/L (98-107); CREATININE FOR GFR 1.06 MG/DL (0.55-1.30); GLOMERULAR FILTRATION RATE 50.5 (>32); MAGNESIUM LEVEL 1.4 MG/DL (1.8-2.4); POTASSIUM SERUM 3.8 MMOL/L (3.5-5.1); SODIUM LEVEL 134.0 MMOL/L (136-145)
[2025-10-16 09:24] VITALS: BP 150/64
[2025-10-16] MEDS ORDERED: MAGN400T33 PO (10:44)
[2025-10-16] MEDS ORDERED: AMLO25TA PO (10:44)
[2025-10-16] MEDS ORDERED: PANT20TA51 PO (10:44)
[2025-10-16] MEDS ORDERED: METO1TAB32 PO (10:44)
[2025-10-16] MEDS ORDERED: NYST10006 TOP (10:44)
[2025-10-16] MEDS ORDERED: ALBU8.5H INH (10:44)
[2025-10-16] MEDS ORDERED: BUDE90AE INH (10:44)
[2025-10-16] MEDS ORDERED: TALK1KIT MC (11:54)
[2025-10-16] MEDS ORDERED: BUDE0.5S6 NEB (11:54)
== END 2025-10-16 12:34 | disposition home health service (06) | DRG 195 ==
LOC: M ED 16:52 → M ED INP 16:53 → M MSPAV 10-09 12:36 → OBSVTOIN 10-09 23:20
PROVIDERS: ADMIT Internal Medicine; ATTEND General Practice
DX: J10.1 Influenza due to other identified influenza virus with other respiratory manifestations (principal); E11.65 Type 2 diabetes mellitus with hyperglycemia; F03.90 Unspecified dementia, unspecified severity, without behavioral disturbance, psychotic disturbance, mood disturbance, and anxiety; I48.91 Unspecified atrial fibrillation; I10 Essential (primary) hypertension; Z66 Do not resuscitate; Z79.01 Long term (current) use of anticoagulants; Z79.84 Long term (current) use of oral hypoglycemic drugs; Z79.899 Other long term (current) drug therapy; Z88.0 Allergy status to penicillin; Z88.6 Allergy status to analgesic agent; R19.7 Diarrhea, unspecified